=== PATIENT | female | born 1990 | race Caucasian/White ===

== ENCOUNTER 2016-10-23 09:56 | Emergency (ER) | payer OTHER ==
[2016-10-23 10:55] VITALS: BP 119/74
--- NOTE | 2016-10-23 11:08 | UC ---
Lower Extremity/Ankle HPI - HPI Summary HPI Summary: concerned there is some erythema on her left lower leg and has cellulitis--- patient reports her legs always swell a little after work, she denies pain, fevers, chills, or any constitutional symptoms - History of Current Complaint Chief Complaint: Norman Stated Complaint: SKIN COMPLAINT Time Seen by Provider: 10/23/16 11:01 Hx Obtained From: Patient Hx Last Menstrual Period: Irregular/Mirena IUD ?: No Onset/Duration: Sudden Onset, Lasting Days Severity Initially: Mild Severity Currently: Mild Pain Intensity: 0 Aggravating Factor(s): Nothing Alleviating Factor(s): Nothing Able to Bear Weight: Yes - Allergies/Home Medications Allergies/Adverse Reactions: Allergies Allergy/AdvReac Type Severity Reaction Status Date / Time No Known Allergies Allergy Verified 10/23/16 10:51 Home Medications: Home Medications Acetaminophen TAB* [Tylenol TAB*] 650 mg PO Q4H PRN 10/23/16 [History Confirmed 10/23/16] Levonorgestrel (Iud) [Mirena IUD] 20 mcg IU ONCE 10/23/16 [History Confirmed ] PMH/Surg Hx/FS Hx/Imm Hx Previously Healthy: Yes - Surgical History Surgical History: None - Family History Known Family History: Positive: None - Social History Occupation: Employed Full-time Lives: With Family Alcohol Use: Rare Substance Use Type: None Smoking Status (MU): Never Smoked Tobacco Have You Smoked in the Last Year: No - Immunization History Most Recent Influenza Vaccination: Not the 2016/2017 Season Review of Systems Constitutional: Negative Skin: Other - left leg slight swelling and believes it is a little re by her ankle Eyes: Negative ENT: Negative Respiratory: Negative Cardiovascular: Negative Gastrointestinal: Negative Genitourinary: Negative Motor: Negative Neurovascular: Negative Musculoskeletal: Negative Neurological: Negative Psychological: Negative Is Patient Immunocompromised?: No All Other Systems Reviewed And Are Negative: Yes Physical Exam Triage Information Reviewed: Yes Appearance: Well-Appearing, No Pain Distress, Well-Nourished Vital Signs: Initial Vital Signs Temp 98.3 F 10/23/16 10:50 Pulse 78 10/23/16 10:50 Resp 16 10/23/16 10:50 BP 119/74 10/23/16 10:50 Pulse Ox 100 10/23/16 10:50 Vital Signs Reviewed: Yes Eye Exam: Normal Eyes: Positive: Conjunctiva Clear ENT Exam: Normal ENT: Positive: Normal ENT inspection, Hearing grossly normal. Negative: Nasal congestion, Nasal drainage, Trismus, Muffled/hoarse voice Dental Exam: Normal Neck exam: Normal Neck: Positive: Supple, Nontender Respiratory Exam: Normal Respiratory: Positive: Chest non-tender, Lungs clear, Normal breath sounds, No respiratory distress, No accessory muscle use Cardiovascular Exam: Normal Cardiovascular: Positive: RRR, No Murmur, Pulses Normal, Brisk Capillary Refill Musculoskeletal Exam: Normal Musculoskeletal: Positive: Strength Intact, ROM Intact, Edema @ - sligh in both lower legs L>R Neurological Exam: Normal Neurological: Positive: Alert, Muscle Tone Normal Psychological Exam: Normal Skin Exam: Normal Skin: Positive: Other - no warmth, pain tenderness or erythema noted, no cord no calf tenderness Lower Extremity Course/Dx - Course Course Of Treatment: elevate legs, concider compression hose follow with pcp prn - Differential Dx/Diagnosis Differential Diagnosis/HQI/PQRI: Cellulitis, Contusion, DVT, Infection Provider Diagnoses: Dependent edema Discharge - Discharge Plan Condition: Stable Disposition: HOME Patient Education Materials: Fever in Adults (ED), Leg Edema (ED) Referrals: Christiane Garcia MD [Primary Care Provider] - If Needed
== END 2016-10-23 11:31 | disposition home or self-care (01) ==
LOC: UCCORT 09:56
DX: R60.9 Edema, unspecified (principal)
CPT/HCPCS: 99211; G0463

== ENCOUNTER 2017-07-08 13:20 | Emergency (ER) | payer OTHER ==
--- OUTSIDE RECORDS SUMMARY | 2017-07-08 14:23 | XMS REPORT ---
:1990 External Reference #:[id number] Author Organization [facility] Address [address] [address] Phone [phone] Care Team Providers Name Role Phone Christiane Moreira MD Care Team Information Director Of Campus Recreation Unavailable Payers Type Date Identification Numbers Payment Provider Subscriber Commercial Policy Number: [id number] Ellen Egan PayID: [id number] [address] [place] [address] [employer] Part B Effective: Policy Number: [employer] DO Not John Hameed 2012 [id number] Use Expires: 2016 Group Number: [id number] [address] PayID: [id number] [place] [address] Medigap Part B Effective: 2012 Policy Number: [employer]ign[employer] DO Not Martha Sweeney [id number] Use Expires: 2014 PayID: [id number] [address] [place] [address] Problems Date Description Provider Status Onset: 11/19/2010 No current problems or disability Active Family History Date Family Member(s) Problem(s) Comments Paternal Grandfather Cancer, Colon Social History Type Date Description Comments Education Higest level completed, Bachelor's [facility] 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[employer] Cigarette Use Never Smoked Cigarettes ETOH Use Denies alcohol use Smoking Patient has never smoked General Hx Text Allergies, Adverse Reactions, Alerts Date Description Reaction Status Severity Comments 04/07/2014 NKDA active Medications Medication Date Status Form Strength Qnty SIG Indications Ordering Provider Naproxen Sodium 04/03/ Active Tablets 550mg 60tab 1 by M25.512 Digiovann 2018 s mouth a, every 12 Naomi, hours [employer]ACH[employer]ER for 2 weeks then as needed Furosemide 10/25/ Active Tablets 20mg 30tab 1 po R60.9 Jose 2016 s daily as MD Christiane needed for edema One Daily / Active Tablets 1 by Unknown Complete 0000 mouth every day No Active 08/03/ Hx Unknown Medications 2015 - 2015 Fluticasone 08/03/ Hx Suspension 50mcg/Act 16uni 1 spray H69.92 Digiovann Propionate 2016 - ts each a, 10/25/ nostril Naomi, 2016 daily [employer]ACH[employer] No Active 03/19/ Hx Unknown Medications 2015 - 2015 Azithromycin 03/19/ Hx Tablets 250mg 6tabs 2 by J01.00 Jose, 2015 - mouth MD Christiane 03/23/ today, 2015 then 1 by mouth daily x 4 more days Zantac 04/07/ Hx Tablets 150mg otc 1 by 078.10 Jose 2014 - mouth MD Christiane 03/19/ twice a 2015 day Meloxicam 10/10/ Hx Tablets 15mg 30tab 1 tab po Jose 2012 - s daily MD Christiane 03/19/ for pain 2015 for 1-2 weeks, then daily prn for pain Cyclobenzaprine 10/10/ Hx Tablets 10mg 30tab 1 tab po AUBREY Moreira 2012 - s q hs prn MD Christiane 03/19/ muscle 2016 spasm Drospirenone-Ethi 27/ Hx Tablets 3-0.03mg 84tab Take One gini Moreira Estradiol 2007 - s Tablet MD Christiane 04/07/ By Mouth 2014 Every Day Drospirenone-Ethi 10/27/ Hx Tablets 3-0.03mg 84tab Take One gini Moreira Estradiol 2007 - s Tablet MD Christiane 05/12/ By Mouth 2014 Every Day Complete / Hx Tablets 14-0.4mg 1 by Unknown 0000 - mouth 09/24/ every 2015 day Immunizations CPT Code Status Date Vaccine Lot # [id number] Given 04/20/2007 HPV Vaccine (Gardasil) 3 Dose Schedule 29949 Given 04/20/2007 HPV Vaccine (Gardasil) 3 Dose Schedule 92420 Given 01/25/2007 HPV Vaccine (Gardasil) 3 Dose Schedule 60762 Given 09/21/2006 Menactra/Menveo Meningococcal Vaccine 21027 Given 09/21/2006 Tdap (Adacel) Ages 7 And Above Only 53131 Given 09/21/2006 HPV Vaccine (Gardasil) 3 Dose Schedule Vital Signs Date Vital Result Comment 06/30/2017 Weight 237.00 lb Heart Rate 68 /min BP Systolic 112 mmHg BP Diastolic 70 mmHg Respiratory Rate 18 /min Height 65.5 inches 5'5.50"06/30/17 BMI (Body Mass Index) 38.8 kg/m2 04/03/2017 Weight 234.00 lb Heart Rate 74 /min BP Systolic 120 mmHg BP Diastolic 70 mmHg Respiratory Rate 18 /min Height 65.5 inches 5'5.50" BMI (Body Mass Index) 38.3 kg/m2 01/05/2017 Weight 235.00 lb Heart Rate 68 /min BP Systolic 110 mmHg BP Diastolic 80 mmHg Respiratory Rate 18 /min Height 65.5 inches 5'5.50" 10/25/16 BMI (Body Mass Index) 38.5 kg/m2 10/25/2016 Body Temperature 98.3 F Weight 238.00 lb Heart Rate 80 /min BP Systolic 122 mmHg BP Diastolic 70 mmHg Respiratory Rate 18 /min Height 65.5 inches 5'5.50" 10/25/16 BMI (Body Mass Index) 39.0 kg/m2 10/14/2015 Weight 213.00 lb Heart Rate 74 /min BP Systolic 120 mmHg BP Diastolic 64 mmHg Respiratory Rate 16 /min Height 65.5 inches 5'5.50" BMI (Body Mass Index) 34.9 kg/m2 09/25/2015 Weight 212.00 lb Heart Rate 72 /min BP Systolic 116 mmHg BP Diastolic 78 mmHg Respiratory Rate 12 /min Height 65.5 inches 5'5.50" BMI (Body Mass Index) 34.7 kg/m2 08/28/2015 Weight 218.00 lb Heart Rate 80 /min BP Systolic 128 mmHg BP Diastolic 74 mmHg Respiratory Rate 17 /min Height 65.5 inches 5'5.50" BMI (Body Mass Index) 35.7 kg/m2 08/04/2015 Weight 254.00 lb Heart Rate 82 /min BP Systolic 128 mmHg BP Diastolic 74 mmHg Respiratory Rate 18 /min Height 65.5 inches 5'5.50" BMI (Body Mass Index) 41.6 kg/m2 03/19/2015 Body Temperature 96.6 F Weight 231.00 lb Heart Rate 80 /min BP Systolic 122 mmHg BP Diastolic 80 mmHg Respiratory Rate 18 /min Height 65.5 inches 5'5.50" O2 % BldC Oximetry 96 % BMI (Body Mass Index) 37.9 kg/m2 05/31/2014 Weight 231.00 lb Heart Rate 76 /min BP Systolic 112 mmHg BP Diastolic 70 mmHg Respiratory Rate 18 /min Height 65.5 inches 5'5.50" BMI (Body Mass Index) 37.9 kg/m2 05/12/2014 Weight 232.00 lb Heart Rate 68 /min BP Systolic 102 mmHg BP Diastolic 70 mmHg Respiratory Rate 18 /min Height 65.5 inches 5'5.50" BMI (Body Mass Index) 38.0 kg/m2 04/21/2014 Weight 232.00 lb Heart Rate 68 /min BP Systolic 122 mmHg BP Diastolic 70 mmHg Respiratory Rate 18 /min Height 65.5 inches 5'5.50" BMI (Body Mass Index) 38.0 kg/m2 04/07/2014 Weight 232.00 lb Heart Rate 68 /min BP Systolic 112 mmHg BP Diastolic 70 mmHg Respiratory Rate 18 /min Height 65.5 inches 5'5.50" BMI (Body Mass Index) 38.0 kg/m2 11/01/2013 Weight 232.00 lb Heart Rate 68 /min BP Systolic 112 mmHg BP Diastolic 70 mmHg Respiratory Rate 18 /min Height 65.5 inches 5'5.50" 10/01/2013 Weight 219.00 lb Heart Rate 68 /min BP Systolic 110 mmHg BP Diastolic 78 mmHg Respiratory Rate 18 /min Height 65.5 inches 5'5.50" 09/11/2013 Weight 220.00 lb Heart Rate 76 /min BP Systolic 112 mmHg BP Diastolic 78 mmHg Respiratory Rate 18 /min Height 65.5 inches 5'5.50" 07/03/2013 Weight 234.00 lb Heart Rate 72 /min BP Systolic 120 mmHg BP Diastolic 82 mmHg Respiratory Rate 18 /min Height 65.5 inches 5'5.50" 11/15/2012 Weight 226.00 lb Heart Rate 76 /min BP Systolic 122 mmHg BP Diastolic 80 mmHg Respiratory Rate 18 /min Height 65.75 inches 5'5.75" (Done On 02/21/12) 06/27/2012 Weight 222.00 lb Heart Rate 80 /min BP Systolic 120 mmHg BP Diastolic 80 mmHg Respiratory Rate 16 /min Height 65.75 inches 5'5.75" (Done On 02/21/12) 05/09/2012 Body Temperature 97.4 F Weight 227.00 lb Heart Rate 88 /min BP Systolic 102 mmHg BP Diastolic 70 mmHg Respiratory Rate 18 /min Height 65.75 inches 5'5.75" (Done On 02/21/12) 02/21/2012 Weight 225.00 lb Heart Rate 88 /min BP Systolic 114 mmHg BP Diastolic 70 mmHg Respiratory Rate 18 /min Height 65.75 inches 5'5.75" 03/29/2011 Body Temperature 98.0 F Weight 216.00 lb Heart Rate 76 /min BP Systolic 116 mmHg BP Diastolic 74 mmHg Respiratory Rate 16 /min Height 65.5 inches 5'5.50" O2 % BldC Oximetry 98 % 03/15/2011 Weight 220.00 lb Heart Rate 80 /min BP Systolic 124 mmHg BP Diastolic 74 mmHg Respiratory Rate 20 /min Height 65.5 inches 5'5.50"/-201011/19/2010 Body Temperature 97.0 F Weight 226.44 lb Heart Rate 80 /min BP Systolic 110 mmHg BP Diastolic 64 mmHg Respiratory Rate 18 /min Height 65.5 inches 5'5.50"/-201002/17/2010 Weight 215.00 lb Heart Rate 80 /min BP Systolic 110 mmHg BP Diastolic 70 mmHg Respiratory Rate 18 /min Height 65.5 inches 5'5.50" 02/19/2009 Weight 197.00 lb Heart Rate 84 /min BP Systolic 114 mmHg BP Diastolic 70 mmHg Respiratory Rate 16 /min Height 65 inches 5'5" 11/21/2008 Body Temperature 97.4 F Weight 194.00 lb Heart Rate 88 /min BP Systolic 122 mmHg BP Diastolic 74 mmHg Respiratory Rate 16 /min 11/05/2008 Body Temperature 98.4 F Weight 192.00 lb Heart Rate 88 /min BP Systolic 112 mmHg BP Diastolic 68 mmHg Respiratory Rate 18 /min 07/08/2008 Body Temperature 98.4 F Weight 201.00 lb Heart Rate 84 /min BP Systolic 110 mmHg BP Diastolic 64 mmHg Respiratory Rate 18 /min Height 65.5 inches 5'5.50" O2 % BldC Oximetry 97 % 12/25/2007 Weight 197.00 lb Heart Rate 84 /min BP Systolic 100 mmHg BP Diastolic 60 mmHg Respiratory Rate 18 /min 12/03/2007 Weight 203.00 lb Heart Rate 84 /min BP Systolic 110 mmHg BP Diastolic 70 mmHg Respiratory Rate 18 /min 06/27/2007 Body Temperature 99.7 F Weight 190.00 lb Heart Rate 80 /min BP Systolic 108 mmHg BP Diastolic 68 mmHg Respiratory Rate 16 /min 01/25/2007 Weight 184.00 lb Heart Rate 74 /min BP Systolic 120 mmHg BP Diastolic 80 mmHg Respiratory Rate 18 /min 09/21/2006 Weight 175.00 lb Heart Rate 79 /min BP Systolic 120 mmHg BP Diastolic 78 mmHg Respiratory Rate 17 /min Height 64.75 inches 5'4.75" Results Test Date Test Result H/L Range Note Xray 06/30/2017 Shoulder, Complete, <pending> Min. Of 2 V LT CBC With Auto Diff 10/25/2016 WBC 5.5 K/uL 4.1-11.0 1 RBC 4.99 M/uL 4.00-5.40 1 Hemoglobin 14.1 gm/dL 12.0-16.0 1 Hematocrit 43.1 % 36.0-47.0 1 MCV 86.4 fL 80.0-97.0 1 MCH 28.4 pg 27.0-32.0 1 MCHC 32.8 g/dL 32.0-36.0 1 RDW 13.5 % 11.5-14.5 1 PLT Count 248 K/ul 140-400 1 Neutrophil 45.7 % 35.0-75.0 1 Lymphocyte 48.3 % 16.0-52.0 1 Monocyte 4.8 % 2.0-10.0 1 Eosinophil 0.9 % 0.0-5.0 1 Basophil 0.3 % 0.0-4.0 1 Abs Neutrophils 2.5 K/uL 2.1-8.0 1 Abs Lymphocytes 2.6 K/uL 0.8-5.5 1 Abs Monocytes 0.3 K/uL 0.1-1.0 1 Abs Eosinophils 0.0 K/uL 0.0-0.5 1 Abs Basophils 0.0 K/uL 0.0-0.3 1 Laboratory test finding 10/25/2016 TSH 2.60 uIU/mL 0.35-4.94 1 Comprehensive Met Panel-FCMG 10/25/2016 Sodium 142 mmol/L 135-146 1, 2 Potassium 4.1 mmol/L 3.5-5.2 1 Chloride# 103 mmol/L 97-110 1, 3 Carbon Dioxide 29 mmol/L 24-34 1 Glucose 92 mg/dL 70-105 1 BUN 15 mg/dL 6-26 1 Creatinine 0.8 mg/dL 0.5-1.4 1 Calcium 9.3 mg/dL 8.5-10.2 1 Total Protein 6.7 g/dL 6.0-8.0 1 Albumin 4.2 g/dL 3.6-4.9 1 Globulin 2.5 g/dL 2.0-3.5 1 A/G Ratio 1.7 Ratio 1.0-2.2 1 Total Bilirubin 0.3 mg/dL 0.1-1.3 1 Alkaline Phosphatase 54 U/L 24-140 1 Alt 19 U/L 3-42 1 Ast 15 U/L 8-42 1 Soraida Egfr >60 >60 1, 4 Non Soraida Egfr >60 >60 1, 5 Anion Gap 10 mmol/L 7-16 1, 6 Lipid 10/25/2016 Cholesterol 232 mg/dL High 50-199 1 Triglycerides 338 mg/dL High 30-200 1 HDL 38 mg/dL 35-85 1, 7 Chol/ HDL Ratio 6.1 ratio High 3.7-5.6 1 VLDL 68 mg/dL High 2-29 1 LDL (Calc) 126 mg/dL High 20-99 1, 8 Urine Total Prot Timed Profile 07/01/2015 Urine Collection Time 24 Hours Urine Total Volume 2275 mL Urine Total Protein Conc 15.6 mg/dL Urine TP Total (mg/24hr) 355 [id number] High CBC 07/01/2015 White Blood Count 7.4 K/uL 3.1-10.7 Red Blood Count 4.37 M/uL 3.90-5.40 Hemoglobin 12.8 gm/dL 11.6-15.8 Hematocrit 38.2 % 36.0-46.1 Mean Cell Volume 87.4 fl 80.9-99.0 Mean Corpuscular HGB 29.3 pg 25.9-32.7 Mean Corpuscular HGB Conc 33.5 g/dL 30.8-34.3 Platelet Count 174 K/uL 155-360 Red Cell Distri Width %CV 14.4 % 11.7-14.4 Mean Platelet Volume 11.0 fL 8.9-12.4 Laboratory test finding 07/01/2015 Uric Acid 4.6 mg/dL 2.6-6.0 Liver Function Tests 07/01/2015 Total Protein 6.3 g/dL Low 6.4-8.2 Albumin 2.5 g/dL Low 3.4-5.0 Globulin 3.8 g/dL 1.9-4.3 Alb/Glob 0.7 ratio Bilirubin,Total 0.2 mg/dL 0.2-1.0 Bilirubin,Direct < 0.1 mg/dL 0.0-0.2 Bilirubin,Indirect 0.1 mg/dL 0.0-0.9 Sgot/Ast 8 U/L Low 15-37 9 SGPT/Alt 15 U/L 12-78 Alkaline Phosphatase 79 U/L 45-117 Laboratory test finding 05/09/2012 Throat Culture Complete See Note 10 Laboratory test finding 03/15/2011 Cytology Pap See Note 11 Laboratory test finding 02/17/2010 Cytology Pap See Note 12 Laboratory test finding 02/17/2010 A/G Ratio 1.3 1.0-2.2 13 Absolute Basophils 0.055 K/ul 0.0-0.3 13 Absolute Eosinophils 0.040 K/ul 0.0-0.5 13 Absolute Lymphocytes 2.48 K/ul 0.8-4.8 13 Absolute Monocytes 0.376 K/ul 0.1-1.0 13 Absolute Neutrophils 3.68 K/ul 2.05-7.63 13 Albumin 3.8 g/dL 3.5-5.0 13 Alkaline Phosphatase 55 U/L 30-126 13 Alt 17 U/L 9-52 13 Ast 14 U/L 14-36 13 BUN 16 mg/dL 7-18 13 BUN/CR Ratio 19.6 Ratio 12-20 13 Basophil 0.8 % 0-2 13 Calcium 9.5 mg/dL 8.7-10.5 13 Carbon Dioxide 27 mmol/L 22-30 13 Chloride 104 mmol/L 98-107 13 Creatinine, Serum 0.8 mg/dL 0.7-1.2 13 Eosinophil 0.6 % 0-4 13 Globulin 2.9 g/dL 2.7-4.3 13 Glucose 82 mg/dL 65-105 13 Hematocrit 39.6 % 37.0-51.0 13 Hemoglobin 13.8 GM/dl 12.0-16.0 13 Lymphocytes 37.4 % 20-44 13 MCH 29.3 pg 26.0-32.0 13 MCHC 34.8 g/dL 31.0-36.0 13 MCV 84 FL 80-97 13 Monocytes 5.7 % 2-10.0 13 Neutrophils 55.5 % 50-70 13 Platelet Count 292 K/ul 140-440 13 Potassium 4.5 mmol/L 3.6-5.0 13 RBC 4.70 M/ul 4.2-6.3 13 RDW 12.6 % 11.5-14.5 13 Sodium 141 mmol/L 137-145 13 TSH 2.652 uIU/ml 0.50-6.00 13 Total Bilirubin 0.4 mg/dL 0.2-1.3 13 Total Protein 6.7 g/dL 6.3-8.2 13 WBC 6.6 K/ul 4.1-10.9 13 Lipid Panel 02/17/2010 Chol/HDL Ratio 3.3 13, 14 Cholesterol 222 mg/dL High 50-199 13 HDL Cholesterol 66 mg/dL 29-86 13 LDL 120 mg/dL 20-129 13 Triglycerides 179 mg/dL 30-249 13 VLDL Cholesterol 36 mg/dL 13 Laboratory test finding 11/05/2008 Culture Throat Normal Throat FL <See 15 Note> Laboratory test finding 07/08/2008 Culture Throat <see comment> 16 Laboratory test finding 12/25/2007 Anion Gap 14 mmol/L 10-20 BUN 17 mg/dL 7-18 BUN/CR Ratio 21.4 Ratio High 12-20 Calcium 9.3 mg/dL 8.7-10.5 Carbon Dioxide 26 mmol/L 22-30 Chloride 106 mmol/L 98-107 Creatinine, Serum 0.8 mg/dL 0.7-1.2 Glucose 82 mg/dL 65-105 Potassium 4.4 mmol/L 3.6-5.0 Sodium 141 mmol/L 137-145 Laboratory test finding 12/03/2007 Absolute Basophils 0.03 K/ul 0.0-0.3 Absolute Eosinophils 0.06 K/ul 0.0-0.5 Absolute Lymphocytes 1.72 K/ul 0.8-4.8 Absolute Monocytes 0.43 K/ul 0.1-1.0 Absolute Neutrophils 4.23 K/ul 2.05-7.63 Anion Gap 15 mmol/L 10-20 BUN 15 mg/dL 7-18 BUN/CR Ratio 19.9 Ratio 12-20 Basophil 0.4 % 0-2 Calcium 9.3 mg/dL 8.7-10.5 Carbon Dioxide 28 mmol/L 22-30 Chloride 104 mmol/L 98-107 Creatinine, Serum 0.8 mg/dL 0.7-1.2 Eosinophil 0.9 % 0-4 FSH 3.9 mIU/mL 17 Glucose 83 mg/dL 65-105 Hematocrit 41.4 % 37.0-51.0 Hemoglobin 14.2 GM/dl 12.0-16.0 Luteinizing Hormone 2.1 mIU/mL 18 Lymphocytes 26.6 % 20-44 MCH 29.3 pg 26.0-32.0 MCHC 34.2 g/dL 31.0-36.0 MCV 86 FL 80-97 Monocytes 6.7 % 2-10.0 Neutrophils 65.4 % 50-70 Platelet Count 269 K/ul 140-440 Potassium 4.1 mmol/L 3.6-5.0 RBC 4.84 M/ul 4.2-6.3 RDW 12.6 % 11.5-14.5 Sodium 143 mmol/L 137-145 TSH 1.832 uIU/ml 0.50-6.00 Testosterone,Serum 36 ng/dL 14-76 WBC 6.5 K/ul 4.1-10.9 Laboratory test finding 06/27/2007 Rapid Strep Test pos 1 today 2 Updated reference range on new analyzer 3 Updated reference range on new analyzer 4 Concerning GFR Guidelines for Americans: Normal function or mild renal disease, if clinically at risk: >/=60 mL/min Moderately decreased: 30-59 Severely decreased: 15-29 Renal failure: <15 5 Concerning GFR Guidelines: Normal function or mild renal disease, if clinically at risk: >/=60 mL/min Moderately decreased: 30-59 Severely decreased: 15-29 Renal failure: <15 Glomerular Filtration Rate (GFR) is estimated based on the MDRD equation, which assumes a steady state for creatinine as recommended by the National Kidney Disease Education Program in conjunction with the National Institutes of Health and the National Kidney Foundation. Clinical conditions in which it may be necessary to measure GFR by using clearance methods include extremes of age and body size, severe malnutrition or obesity, diseases of skeletal muscle, paraplegia or quadriplegia, vegetarian diet, rapidly changing kidney function, and calculation of the dose of potentially toxic drugs that are excreted by the kidneys. 6 Updated reference range on new analyzer 7 Per NCEP ATP III Guidelines: Results lower than 40 mg/dL are suggestive of increased risk for coronary artery disease. Results > or=to 60 mg/dL are considered a negative risk factor. 8 Per NCEP ATP III Guidelines: Normal Population <130 Patients with medical conditions: CHD/DM Optimal: <100 Borderline high: 130-159 High: 160-189 Very high: >189 9 Values below the stated reference ranges of AST and ALT can be seen in normal populations. Clinical correlation is suggested. 10 NORMAL THROAT [place] 11 Cytology Laboratory [address], [address] [place] [address] CYTOLOGY REPORT Name: Hui Egan Accession # : [id number] : 1990 (Age: 20) Sex: F Location: [facility] Med. Rec. #: [id number] Date Collected: 03/15/2011 Billing #: [id number] Date Received: 03/15/2011 Requisition # [id number] Physician(s): CHRISTIANE MOREIRA MD Source of Specimen: ENDOCERVICAL/ECTOCERVICAL THIN PREP Clinical Information: Date of Last Menstrual Period: 03/06/11 Menstrual History: Regular Hormonal History: OCPs Specimen Adequacy: SATISFACTORY FOR EVALUATION. NO ENDOCERVICAL/TRANSFORMATION ZONE. General Categorization: NEGATIVE FOR INTRAEPITHELIAL LESION OR MALIGNANCY. tfn Electronic Signature HI Tolbert (ASCP) Reported: 03/17/2011 Cytology Outreach [facility] ICD-9 Code(s) V72.31 12 Cytology Laboratory [address], [address] [place] [address] CYTOLOGY REPORT Name: Hui Vee : 1990 (Age: 19) Sex: F Location: [facility] Soc. Sec. #: [id number] Date Collected: 02/17/2010 Billing #: [id number] Date Received: 02/17/2010 [facility]. Rec. #: [id number] Requisition # [id number] Physician(s): CHRISTIANE MOREIRA MD Source of Specimen: ENDOCERVICAL/ECTOCERVICAL THIN PREP Clinical Information: Date of Last Menstrual Period: 02/03/10 Menstrual History: Regular Hormonal History: OCPs: Elen Specimen Adequacy: SATISFACTORY FOR EVALUATION. ADEQUATE ENDOCERVICAL/TRANSFORMATION ZONE. General Categorization: NEGATIVE FOR INTRAEPITHELIAL LESION OR MALIGNANCY. tfn Electronic Signature HI Tolbert (ASCP) Reported: 02/22/2010 Also seen by:HI Tolbert ( ASCP) Cytology [facility] ICD-9 Code(s) V72.31 13 FASTING 14 Normal Range: Male: <4.98 Female: <4.45 15 NORMAL THROAT [place] 16 Organism 1 ! BETA HEMOLYTIC STREP NON A QUANTITY ! MANY 17 NORMALLY MENSTRUATING FEMALES: Follicular Phase:...............4-13 mIU/mL Mid-Cycle Peak:.................5-22 mIU/mL Luteal Phase:...................2 -13 mIU/mL Postmenopausal Female:........20-138 mIU/mL 18 NORMALLY MENSTRUATING FEMALES: Follicular Phase.............1-18 mIU/mL Mid -Cycle Peak.............24-105 mIU/mL Luteal Phase...............0.4-20 mIU/mL Postmenopausal .............15-62 mIU/mL Procedures Date CPT Code Description Status 10/14/2015 02114 Destruction Benign Lesions Other Than Skin Tags Up To Completed 14 Lesions 09/25/2015 52562 Destruction Benign Lesions Other Than Skin Tags Up To Completed 14 Lesions 08/28/2015 37296 Destruction Benign Lesions Other Than Skin Tags Up To Completed 14 Lesions 03/19/2015 93743 Measure Blood Oxygen Level Single Determination Completed 05/31/2014 92320 Destruction Benign Lesions Other Than Skin Tags Up To Completed 14 Lesions 05/12/2014 83191 Destruction Benign Lesions Other Than Skin Tags Up To Completed 14 Lesions 04/21/2014 49320 Destruction Benign Lesions Other Than Skin Tags Up To Completed 14 Lesions 04/07/2014 75715 Destruction Benign Lesions Other Than Skin Tags Up To Completed 14 Lesions 11/01/2013 25684 Destruction Benign Lesions Other Than Skin Tags Up To Completed 14 Lesions 10/01/2013 65431 Destruction Benign Lesions Other Than Skin Tags Up To Completed 14 Lesions 09/11/2013 00639 Destruction Benign Lesions Other Than Skin Tags Up To Completed 14 Lesions 03/29/2011 74224 Measure Blood Oxygen Level Single Determination Completed 07/08/2008 49104 Measure Blood Oxygen Level Single Determination Completed 01/25/2007 57605 Destruction Benign Lesions Other Than Skin Tags Up To Completed 14 Lesions Encounters Type Date Location Provider CPT E/M Dx Office Visit 04/03/2017 8:15a [facility] [place] [address] M25.512 Office Visit 01/05/2017 11:15a [facility] [place] [address] E78.1 R60.9 M25.512 Office Visit 10/25/2016 2:15p [facility] [place] [place] [address] R60.9 R63.5 Office Visit 08/04/2015 2:45p [facility] [place] [address] H69.92 Office Visit 03/19/2015 10:30a [facility] [place] [place] [address] J01.00 Plan of Care Future Appointment(s):01/08/2018 8:00 am - Schedule, Laboratory at [facility]2017 8:15 am - Christiane Moreira MD at [facility]06/30/2017 - Janneth Mckoy PAM25.512 Pain in LEFT shoulderComments:Will check x-ray today and treat accordinglyConsider ortho referral, MRI, injectionContinue symptomatic treatmentCall with worsening/persisting symptomsFollow up:PrnZ68.38 Body mass index (BMI) 38.0-38.9, adult
[2017-07-08 14:40] VITALS: BP 120/71
--- NOTE | 2017-07-08 15:04 | UC ---
UC General HPI - HPI Summary HPI Summary: pt states got a cold 5 days ago but the drainage stopped. now, pt has sinus pressure and the material is yellow. hx sinus infections and this feels the same. family had this cold but they all got better. tx with aleve. - History of Current Complaint Chief Complaint: UCRespiratory Stated Complaint: SINUS Time Seen by Provider: 07/08/17 14:56 Hx Obtained From: Patient Hx Last Menstrual Period: early May Onset/Duration: Gradual Onset Timing: Constant Pain Intensity: 3 Associated Signs & Symptoms: Negative: Fever, Headache - Allergy/Home Medications Allergies/Adverse Reactions: Allergies Allergy/AdvReac Type Severity Reaction Status Date / Time No Known Allergies Allergy Verified 07/08/17 14:40 Home Medications: Home Medications Naproxen Sodium [Aleve] 220 mg PO Q12H PRN 07/08/17 [History Confirmed 07/08/17] PMH/Surg Hx/FS Hx/Imm Hx - Additional Past Medical History Additional PMH: sinusitis - Surgical History Surgical History: Yes Surgery Procedure, Year, and Place: , wisdom teeth - Family History Known Family History: Positive: None - Social History Occupation: Employed Full-time Lives: With Family Alcohol Use: Rare Substance Use Type: None Smoking Status (MU): Never Smoked Tobacco Have You Smoked in the Last Year: No - Immunization History Most Recent Influenza Vaccination: Not the Season Vaccination Up to Date: Yes Review of Systems Constitutional: Negative Skin: Negative Eyes: Negative ENT: Sinus Congestion, Sinus Pain/Tenderness Respiratory: Negative Cardiovascular: Negative Gastrointestinal: Negative Genitourinary: Negative Motor: Negative Neurovascular: Negative Musculoskeletal: Negative Neurological: Negative Psychological: Negative Is Patient Immunocompromised?: No All Other Systems Reviewed And Are Negative: Yes Physical Exam Triage Information Reviewed: Yes Appearance: Well-Appearing Vital Signs: Initial Vital Signs Temp 98 F 07/08/17 14:30 Pulse 87 07/08/17 14:30 Resp 18 07/08/17 14:30 BP 120/71 07/08/17 14:30 Pulse Ox 100 07/08/17 14:30 Vital Signs Reviewed: Yes Eyes: Positive: Conjunctiva Clear ENT: Positive: Pharynx normal, Nasal congestion, Nasal drainage - yellow, TMs normal, Sinus tenderness Neck: Positive: Supple, Nontender, No Lymphadenopathy Respiratory: Positive: Lungs clear, Normal breath sounds Cardiovascular: Positive: RRR, No Murmur Abdomen Description: Positive: Nontender, No Organomegaly, Soft Bowel Sounds: Positive: Present Musculoskeletal: Positive: ROM Intact Neurological: Positive: Alert Psychological: Positive: Age Appropriate Behavior Skin Exam: Normal Course/Dx - Course Course Of Treatment: ill x 5 days. will trial flonase and decongestant. if not improving with that, will add antibiotic. - Differential Dx - Multi-Symptom Provider Diagnoses: sinusitis Discharge - Sign-Out/Discharge Documenting (check all that apply): Discharge/Admit/Transfer - Discharge Plan Condition: Stable Disposition: HOME Prescriptions: Amoxicillin/Clavulanate TAB* [Augmentin TAB 875*] 875 mg PO BID #20 tab Patient Education Materials: Sinusitis (ED) Referrals: Christiane Garcia MD [Primary Care Provider] - 7 Days Additional Instructions: START OVER THE COUNTER DECONGESTANT AND FLONASE. IF NOT IMPROVING IN 1-2 DAYS, START THE AUGMENTIN ANTIBIOTIC. START IT SOONER FOR ANY WORSENING. - Billing Disposition and Condition Condition: STABLE Disposition: HOME
== END 2017-07-08 15:13 | disposition home or self-care (01) ==
LOC: UCCORT 13:20
DX: J32.9 Chronic sinusitis, unspecified (principal)
CPT/HCPCS: 99212; G0463

== ENCOUNTER 2018-07-20 18:18 | Emergency (ER) | payer OTHER ==
[2018-07-20 18:29] VITALS: BP 125/74
--- NOTE | 2018-07-20 18:40 | UC ---
Lower Extremity/Ankle HPI - HPI Summary HPI Summary: 28-year-old female who has had some intermittent left lower leg swelling over the past 5-6 months. She states over the past week it has bothered her more as well as left calf pain. She has no history of DVT. She is a nonsmoker, not on control. - History of Current Complaint Chief Complaint: UCLowerExtremity Stated Complaint: SWOLLEN ANKLE Time Seen by Provider: 07/20/18 18:35 Hx Obtained From: Patient Hx Last Menstrual Period: IUD in place ?: No Onset/Duration: Gradual Onset, Lasting Weeks, Other - Intermittent left lower leg swelling over the past 6 months. Severity Initially: Mild Severity Currently: Moderate Pain Intensity: 5 Aggravating Factor(s): Standing, Ambulation Alleviating Factor(s): Nothing Able to Bear Weight: Yes - Allergies/Home Medications Allergies/Adverse Reactions: Allergies Allergy/AdvReac Type Severity Reaction Status Date / Time No Known Allergies Allergy Verified 07/20/18 18:27 PMH/Surg Hx/FS Hx/Imm Hx Previously Healthy: Yes - Surgical History Surgical History: Yes Surgery Procedure, Year, and Place: , wisdom teeth - Family History Known Family History: Positive: None - Social History Alcohol Use: Rare Substance Use Type: None Smoking Status (MU): Never Smoked Tobacco Have You Smoked in the Last Year: No - Immunization History Most Recent Influenza Vaccination: Not the 2016/2017 Season Vaccination Up to Date: Yes Review of Systems All Other Systems Reviewed And Are Negative: Yes Motor: Positive: Negative Neurovascular: Positive: Negative Musculoskeletal: Positive: Calf Tenderness - Left calf tenderness, with left calf and ankle swelling., Edema Is Patient Immunocompromised?: No Physical Exam Triage Information Reviewed: Yes Appearance: Well-Appearing, No Pain Distress, Well-Nourished Vital Signs: Initial Vital Signs Temp 95.6 F 07/20/18 18:24 Pulse 79 07/20/18 18:24 Resp 18 07/20/18 18:24 BP 125/74 07/20/18 18:24 Pulse Ox 98 07/20/18 18:24 Vital Signs Reviewed: Yes Musculoskeletal: Positive: Strength Intact, ROM Intact, Edema @ - Swelling left calf with tenderness on palpation, swelling of ankle and mild swelling of left foot. Good peripheral pulses neuro sensation and capillary refill. Neurological: Positive: Alert, Muscle Tone Normal Lower Extremity Course/Dx - Course Course Of Treatment: Venous Doppler left leg: Negative - Differential Dx/Diagnosis Provider Diagnosis: Swelling of lower leg Discharge - Sign-Out/Discharge Documenting (check all that apply): Patient Departure All imaging exams completed and their final reports reviewed: Yes - Discharge Plan Condition: Fair Disposition: HOME Patient Education Materials: Leg Edema (ED) Referrals: Christiane Garcia MD [Primary Care Provider] - Additional Instructions: Call Dr. Garcia's office on Monday to make an appointment for a recheck. Over the weekend elevate your legs as much as possible and avoid excessive sitting or walking. - Billing Disposition and Condition Condition: FAIR Disposition: Home
== END 2018-07-20 19:18 | disposition home or self-care (01) ==
LOC: UCEAST 18:18
DX: M79.89 Other specified soft tissue disorders (principal)
CPT/HCPCS: 99211; G0463